=== PATIENT | female | born 1965 | race Caucasian/White ===

== ENCOUNTER 2017-04-13 00:26 | Inpatient (IN) | payer OTHER ==
[~2017-04-13] VITALS: Ht 167.6 cm; Wt 115.3 kg
[~2017-04-13 00:26] MED LIST: CINNAMON500 MG PO; ENALAPRIL MALEA20 MG PO; FLUOXETINE HCL20 MG PO; FUROSEMIDE40 MG PO; GABAPENTIN600 MG PO; GLIMEPIRIDE1 MG PO; HYDROCHLOROTHIA25 MG PO; KLOR-CON M2020 MEQ PO; LO-DOSE ASPIRIN81 M2 PO; METFORMIN HCL500 M1 PO; PRAVASTATIN SOD20 MG PO; PROBIOTIC1 EAC1 PO; WELLBUTRIN XL150 MG PO
[2017-04-13 00:44] LABS: BASOPHIL COUNT 0.1 K/uL (0-0.1); EOSINOPHIL (%) 1.9 % (0-5); EOSINOPHIL COUNT 0.3 K/uL (0-0.3); HEMATOCRIT 31.4 % (36.0-46.0); IMMATURE GRANULOCYTE (%) 1.1 % (0.0-0.7); IMMATURE GRANULOCYTE COUNT 0.2 K/uL; INSTRUMENT ABS NEUTROPHIL CT 12.9 K/uL; MCH 28.4 PG (29.0-34.0); MCHC 33.8 G/DL (30.0-36.0); MCV 84.2 FL (83-99); MEAN PLAT.VOLUME 8.4 uM^3 (9.5-12.4); MONOCYTE COUNT 1.2 K/uL (0-0.8); NEUTROPHIL (%) 77.7 % (45-76); NEUTROPHIL COUNT 12.9 K/uL (1.8-6.4); PLATELET COUNT 369 K/uL (156-360); RBC DIS.WIDTH-CV 14.2 % (11.8-14.6); RBC DIS.WIDTH-SD 43.6 % (39-53); RED BLOOD COUNT 3.73 M/uL (3.80-5.20); WHITE BLOOD COUNT 16.6 K/uL (4.1-10.2)
[2017-04-13 00:52] LABS: CHLORIDE 89 mEq/L (99-109); POTASSIUM 4.9 mEq/L (3.7-5.4); SODIUM 126 mEq/L (136-147)
[2017-04-13 00:54] LABS: GLUCOSE 167 mg/dL (70-99)
[2017-04-13 00:55] LABS: ANION GAP 10 MEQ/L (2-14)
[2017-04-13 00:58] LABS: GFR ESTIMATE (CALCULATED) 46 mL/min/
[2017-04-13 00:59] LABS: UREA NITROGEN (BUN) 25 mg/dL (9-23)
[2017-04-13] MEDS ORDERED: ALDACTONE25 MG PO (03:01)
[2017-04-13] MEDS ORDERED: NORVASC5 MG PO (03:02)
[2017-04-13] MEDS ORDERED: LOSARTAN POTASS50 MG PO (03:03)
[2017-04-13] MEDS ORDERED: VENLAFAXINE HCL75 M3 PO (03:04)
[2017-04-13] MEDS ORDERED: TERBINAFINE HC250 MG PO (03:04)
[2017-04-13 03:51] VITALS: BP 148/74
[2017-04-13 03:57] LABS: ADD MIUA? YES; BILIRUBIN NEGATIVE; BLOOD NEGATIVE; COLOR YELLOW ((YELLOW)); GLUCOSE (STRIP) 50; KETONES NEGATIVE; LEUKOCYTES SMALL; NITRITE POSITIVE; PROTEIN (STRIP) NEGATIVE; SPECIFIC GRAVITY 1.013 (1.000-1.030); UROBILINOGEN 0.2 MG/DL (0.2-1.0)
[2017-04-13 04:09] LABS: BACTERIA 1+ /HPF; EPITHELIAL CELLS RARE /HPF; MUCUS TRACE /LPF; RED BLOOD CELLS 0-5 /HPF (0-5); UCUL ADDED? NO
[2017-04-13 05:10] LABS: UR CREATININE CONCENTRATION 70.3 MG/DL
[2017-04-13 06:38] LABS: POINT-OF-CARE METER ID UU14162508
[2017-04-13 07:19] VITALS: BP 106/60
[2017-04-13 08:15] VITALS: BP 142/65
[2017-04-13] MEDS ORDERED: EFFEXOR XR150 MG PO (08:31)
[2017-04-13 11:04] VITALS: BP 132/62
[2017-04-13 12:24] LABS: METH RESISTANT S AUREUS PCR POSITIVE (NEGATIVE)
[2017-04-13 12:31] LABS: PROBE CHECK PASS
[2017-04-13 13:33] LABS: BASOPHIL COUNT 0.1 K/uL (0-0.1); EOSINOPHIL (%) 2.6 % (0-5); EOSINOPHIL COUNT 0.4 K/uL (0-0.3); HEMATOCRIT 29.5 % (36.0-46.0); IMMATURE GRANULOCYTE (%) 0.5 % (0.0-0.7); IMMATURE GRANULOCYTE COUNT 0.1 K/uL; INSTRUMENT ABS NEUTROPHIL CT 11.7 K/uL; LYMPHOCYTE COUNT 1.5 K/uL (1.0-2.8); MCHC 33.2 G/DL (30.0-36.0); MCV 84.3 FL (83-99); MEAN PLAT.VOLUME 8.9 uM^3 (9.5-12.4); MONOCYTE (%) 7.3 % (3-12); MONOCYTE COUNT 1.1 K/uL (0-0.8); NEUTROPHIL COUNT 11.7 K/uL (1.8-6.4); PLATELET COUNT 357 K/uL (156-360); RBC DIS.WIDTH-CV 14.1 % (11.8-14.6); RBC DIS.WIDTH-SD 43.8 % (39-53); WHITE BLOOD COUNT 14.8 K/uL (4.1-10.2)
[2017-04-13 15:10] VITALS: BP 138/58; BP 172/78
[2017-04-13 17:12] LABS: CHLORIDE 95 mEq/L (99-109); POTASSIUM 4.7 mEq/L (3.7-5.4); SODIUM 128 mEq/L (136-147)
[2017-04-13 17:14] LABS: GLUCOSE 125 mg/dL (70-99)
[2017-04-13 17:15] LABS: ANION GAP 10 MEQ/L (2-14)
[2017-04-13 17:18] LABS: GFR ESTIMATE (CALCULATED) 50 mL/min/
[2017-04-13 17:19] LABS: UREA NITROGEN (BUN) 18 mg/dL (9-23)
[2017-04-13 19:43] VITALS: BP 132/62
[2017-04-13 21:20] LABS: POINT-OF-CARE METER ID UU14162508
[2017-04-14 00:29] VITALS: BP 142/64
[2017-04-14 06:33] LABS: BASOPHIL COUNT 0.1 K/uL (0-0.1); EOSINOPHIL (%) 3.5 % (0-5); EOSINOPHIL COUNT 0.5 K/uL (0-0.3); HEMATOCRIT 28.7 % (36.0-46.0); IMMATURE GRANULOCYTE (%) 0.8 % (0.0-0.7); IMMATURE GRANULOCYTE COUNT 0.1 K/uL; INSTRUMENT ABS NEUTROPHIL CT 10.3 K/uL; LYMPHOCYTE COUNT 1.1 K/uL (1.0-2.8); MCH 28.2 PG (29.0-34.0); MCHC 33.1 G/DL (30.0-36.0); MCV 85.2 FL (83-99); MEAN PLAT.VOLUME 8.5 uM^3 (9.5-12.4); MONOCYTE (%) 6.4 % (3-12); MONOCYTE COUNT 0.8 K/uL (0-0.8); NEUTROPHIL (%) 79.9 % (45-76); NEUTROPHIL COUNT 10.3 K/uL (1.8-6.4); PLATELET COUNT 346 K/uL (156-360); RBC DIS.WIDTH-CV 14.1 % (11.8-14.6); RBC DIS.WIDTH-SD 43.9 % (39-53); RED BLOOD COUNT 3.37 M/uL (3.80-5.20); WHITE BLOOD COUNT 12.9 K/uL (4.1-10.2)
[2017-04-14 07:00] VITALS: BP 129/59
[2017-04-14 07:39] LABS: ANION GAP 8 MEQ/L (2-14); CHLORIDE 93 MEQ/L (99-109); GFR ESTIMATE (CALCULATED) 55 mL/min/; GLUCOSE 122 mg/dL (70-99); POTASSIUM 4.9 MEQ/L (3.7-5.4); SAMPLE HEMOLYSIS CHECK 0; SAMPLE ICTERIC CHECK 0; SAMPLE LIPEMIA CHECK 0; SODIUM 129 MEQ/L (136-147); UREA NITROGEN (BUN) 19 mg/dL (9-23)
[2017-04-14 11:48] VITALS: BP 149/68
[2017-04-14 12:26] LABS: POINT-OF-CARE METER ID UU14162508
[2017-04-14] MEDS ORDERED: GLIMEPIRIDE1 MG PO (13:53)
[2017-04-14] MEDS ORDERED: EFFEXOR XR75 MG PO (13:54)
[2017-04-14] MEDS ORDERED: CYANOCOBALAM1000 MCG PO (13:55)
[2017-04-14 16:00] VITALS: BP 148/74
[2017-04-14 17:27] LABS: POINT-OF-CARE METER ID UU14162508
[2017-04-14 23:44] VITALS: BP 123/60
[2017-04-15 06:46] LABS: MCH 28.5 PG (29.0-34.0); MCHC 33.6 G/DL (30.0-36.0); MCV 84.8 FL (83-99); PLATELET COUNT 375 K/uL (156-360); RBC DIS.WIDTH-CV 14.1 % (11.8-14.6); RBC DIS.WIDTH-SD 43.7 % (39-53); WHITE BLOOD COUNT 11.3 K/uL (4.1-10.2)
[2017-04-15 07:55] LABS: ANION GAP 7 MEQ/L (2-14); CHLORIDE 94 MEQ/L (99-109); GFR ESTIMATE (CALCULATED) 55 mL/min/; GLUCOSE 101 mg/dL (70-99); POTASSIUM 4.9 MEQ/L (3.7-5.4); SAMPLE HEMOLYSIS CHECK 0; SAMPLE ICTERIC CHECK 0; SAMPLE LIPEMIA CHECK 0; SODIUM 129 MEQ/L (136-147); UREA NITROGEN (BUN) 18 mg/dL (9-23)
[2017-04-15 08:00] VITALS: BP 120/62
[2017-04-15 12:00] VITALS: BP 139/65
[2017-04-15 12:15] LABS: POINT-OF-CARE METER ID UU14162508
[2017-04-15 21:32] LABS: POINT-OF-CARE METER ID UU14162508
[2017-04-16 00:25] VITALS: BP 152/72
[2017-04-16 06:52] LABS: BASOPHIL COUNT 0.1 K/uL (0-0.1); EOSINOPHIL (%) 5.2 % (0-5); EOSINOPHIL COUNT 0.7 K/uL (0-0.3); HEMATOCRIT 30.2 % (36.0-46.0); IMMATURE GRANULOCYTE COUNT 0.1 K/uL; LYMPHOCYTE COUNT 1.9 K/uL (1.0-2.8); MCH 28.7 PG (29.0-34.0); MCHC 33.4 G/DL (30.0-36.0); MCV 85.8 FL (83-99); MEAN PLAT.VOLUME 8.7 uM^3 (9.5-12.4); MONOCYTE (%) 6.1 % (3-12); MONOCYTE COUNT 0.8 K/uL (0-0.8); NEUTROPHIL (%) 72.3 % (45-76); PLATELET COUNT 433 K/uL (156-360); RBC DIS.WIDTH-CV 14.1 % (11.8-14.6); RBC DIS.WIDTH-SD 43.7 % (39-53); RED BLOOD COUNT 3.52 M/uL (3.80-5.20); WHITE BLOOD COUNT 12.5 K/uL (4.1-10.2)
[2017-04-16 07:23] LABS: ANION GAP 9 MEQ/L (2-14); CHLORIDE 94 MEQ/L (99-109); GFR ESTIMATE (CALCULATED) > 59 mL/min/; GLUCOSE 117 mg/dL (70-99); POTASSIUM 4.8 MEQ/L (3.7-5.4); SAMPLE HEMOLYSIS CHECK 0; SAMPLE ICTERIC CHECK 0; SAMPLE LIPEMIA CHECK 0; SODIUM 132 MEQ/L (136-147); UREA NITROGEN (BUN) 18 mg/dL (9-23)
[2017-04-16 07:40] VITALS: BP 128/60
[2017-04-16 16:55] VITALS: BP 160/70
[2017-04-16 21:39] LABS: POINT-OF-CARE METER ID UU14162508
[2017-04-16 23:30] VITALS: BP 134/76
[2017-04-17 04:39] LABS: BASOPHIL COUNT 0.1 K/uL (0-0.1); EOSINOPHIL (%) 4.7 % (0-5); EOSINOPHIL COUNT 0.6 K/uL (0-0.3); HEMATOCRIT 31.7 % (36.0-46.0); IMMATURE GRANULOCYTE (%) 1.3 % (0.0-0.7); IMMATURE GRANULOCYTE COUNT 0.2 K/uL; INSTRUMENT ABS NEUTROPHIL CT 8.9 K/uL; MCH 28.2 PG (29.0-34.0); MCHC 33.1 G/DL (30.0-36.0); MCV 85.2 FL (83-99); MEAN PLAT.VOLUME 8.6 uM^3 (9.5-12.4); MONOCYTE (%) 5.7 % (3-12); MONOCYTE COUNT 0.7 K/uL (0-0.8); NEUTROPHIL (%) 71.8 % (45-76); NEUTROPHIL COUNT 8.9 K/uL (1.8-6.4); PLATELET COUNT 481 K/uL (156-360); RBC DIS.WIDTH-CV 13.7 % (11.8-14.6); RBC DIS.WIDTH-SD 42.8 % (39-53); RED BLOOD COUNT 3.72 M/uL (3.80-5.20); WHITE BLOOD COUNT 12.4 K/uL (4.1-10.2)
[2017-04-17 04:50] LABS: CHLORIDE 96 mEq/L (99-109); POTASSIUM 4.9 mEq/L (3.7-5.4); SODIUM 133 mEq/L (136-147)
[2017-04-17 04:51] LABS: GLUCOSE 137 mg/dL (70-99)
[2017-04-17 04:53] LABS: ANION GAP 9 MEQ/L (2-14)
[2017-04-17 04:55] LABS: GFR ESTIMATE (CALCULATED) 55 mL/min/
[2017-04-17 04:56] LABS: UREA NITROGEN (BUN) 20 mg/dL (9-23)
[2017-04-17 06:40] LABS: POINT-OF-CARE METER ID UU14162508
[2017-04-17 08:15] VITALS: BP 158/70
[2017-04-17 12:16] LABS: POINT-OF-CARE METER ID UU14162508
[2017-04-17 17:00] VITALS: BP 162/71
[2017-04-17 17:18] LABS: POINT-OF-CARE METER ID UU14162508
[2017-04-17 19:35] VITALS: BP 165/80
[2017-04-18 00:10] VITALS: BP 122/59
[2017-04-18 03:17] VITALS: BP 135/77
[2017-04-18 06:27] LABS: POINT-OF-CARE METER ID UU14162508
[2017-04-18 07:19] LABS: BASOPHIL COUNT 0.1 K/uL (0-0.1); EOSINOPHIL (%) 3.3 % (0-5); EOSINOPHIL COUNT 0.4 K/uL (0-0.3); HEMATOCRIT 28.9 % (36.0-46.0); IMMATURE GRANULOCYTE (%) 1.1 % (0.0-0.7); IMMATURE GRANULOCYTE COUNT 0.1 K/uL; INSTRUMENT ABS NEUTROPHIL CT 9.2 K/uL; LYMPHOCYTE COUNT 1.5 K/uL (1.0-2.8); MCHC 33.6 G/DL (30.0-36.0); MCV 86.5 FL (83-99); MEAN PLAT.VOLUME 8.7 uM^3 (9.5-12.4); MONOCYTE (%) 6.3 % (3-12); MONOCYTE COUNT 0.8 K/uL (0-0.8); NEUTROPHIL (%) 76.4 % (45-76); NEUTROPHIL COUNT 9.2 K/uL (1.8-6.4); PLATELET COUNT 434 K/uL (156-360); RBC DIS.WIDTH-SD 43.8 % (39-53); RED BLOOD COUNT 3.34 M/uL (3.80-5.20)
[2017-04-18 07:38] VITALS: BP 134/64
[2017-04-18 07:50] LABS: ANION GAP 9 MEQ/L (2-14); CHLORIDE 97 MEQ/L (99-109); GFR ESTIMATE (CALCULATED) > 59 mL/min/; GLUCOSE 131 mg/dL (70-99); POTASSIUM 4.6 MEQ/L (3.7-5.4); SAMPLE HEMOLYSIS CHECK 0; SAMPLE ICTERIC CHECK 0; SAMPLE LIPEMIA CHECK 0; SODIUM 133 MEQ/L (136-147); UREA NITROGEN (BUN) 17 mg/dL (9-23)
[2017-04-18] MEDS ORDERED: PEN-VEE K,VEET500 MG PO ×2 (13:04→13:23)
[2017-04-18] MEDS ORDERED: BACTRIM,SEPT1 TABLET PO (13:04)
[2017-04-18] MEDS ORDERED: HYDROCODON-ACE1 EAC7 PO (13:29)
[2017-04-18] MEDS ORDERED: TYLENOL EXTRA500 MG PO (13:29)
== END 2017-04-18 14:55 | disposition home or self-care (01) | DRG 617 ==
LOC: EME 00:26 → 2EAST 02:20 → EDOF 02:20 → 2EAST 03:41
PROVIDERS: Internal Medicine; Internal Medicine Nephrology; Physician Assistant Medical; Student in an Organized Health Care Education/Training Program
PROC: 0Y6U0Z1 Detachment at Left 3rd Toe, High, Open Approach (ICD-10-PCS; principal; 2017-04-17)
DX: E11.628 Type 2 diabetes mellitus with other skin complications (principal); E11.52 Type 2 diabetes mellitus with diabetic peripheral angiopathy with gangrene; Z68.41 Body mass index [BMI] 40.0-44.9, adult; M86.8X7 Other osteomyelitis, ankle and foot; E11.22 Type 2 diabetes mellitus with diabetic chronic kidney disease; L03.116 Cellulitis of left lower limb; E87.1 Hypo-osmolality and hyponatremia; M86.9 Osteomyelitis, unspecified; D64.9 Anemia, unspecified; E78.5 Hyperlipidemia, unspecified; I10 Essential (primary) hypertension; E66.01 Morbid (severe) obesity due to excess calories; E11.69 Type 2 diabetes mellitus with other specified complication; N18.3 Chronic kidney disease, stage 3 (moderate); Z86.14 Personal history of Methicillin resistant Staphylococcus aureus infection; Z79.4 Long term (current) use of insulin
CPT/HCPCS: 73630; 73720; 76770; 80048; 80048 91; 80069; 80202; 81003; 82436; 82570; 82575; 82948; 83605; 83880; 83930; 83935; 84133; 84300; 85025; 85025 91; 85027; 87040; 87070; 87075; 87077; 87147; 87186; 87205; 87641; 88305; 88311; 94660; 99281; 99285; J0690; J1650; J1815; J2250; J2270; J2405; J3010; J3370; J7030; J7050; S0020

== ENCOUNTER 2017-06-07 13:31 | Emergency (ER) | payer OTHER ==
[~2017-06-07] VITALS: Ht 167.6 cm; Wt 118.0 kg
[~2017-06-07 13:31] MED LIST changes: +ALDACTONE25 MG PO; +BACTRIM,SEPT1 TABLET PO; +CYANOCOBALAM1000 MCG PO; +EFFEXOR XR150 MG PO; +EFFEXOR XR75 MG PO; +HYDROCODON-ACE1 EAC7 PO; +LOSARTAN POTASS50 MG PO; +NORVASC5 MG PO; +PEN-VEE K,VEET500 MG PO; +TERBINAFINE HC250 MG PO; +TYLENOL EXTRA500 MG PO; +VENLAFAXINE HCL75 M3 PO
[2017-06-07 14:47] LABS: ADD MIUA? NO; BILIRUBIN NEGATIVE; BLOOD NEGATIVE; COLOR STRAW ((YELLOW)); GLUCOSE (STRIP) NEGATIVE; KETONES NEGATIVE; LEUKOCYTES NEGATIVE; NITRITE NEGATIVE; PROTEIN (STRIP) NEGATIVE; SPECIFIC GRAVITY 1.013 (1.000-1.030); UCUL ADDED? NO; UROBILINOGEN 0.2 MG/DL (0.2-1.0)
[2017-06-07 15:49] VITALS: BP 165/73
== END 2017-06-07 15:51 | disposition home or self-care (01) ==
LOC: EME 13:31
PROVIDERS: Physician Assistant Medical
DX: M79.89 Other specified soft tissue disorders (principal); Z89.422 Acquired absence of other left toe(s); Z98.890 Other specified postprocedural states; I10 Essential (primary) hypertension; E78.5 Hyperlipidemia, unspecified; E11.9 Type 2 diabetes mellitus without complications; Z79.84 Long term (current) use of oral hypoglycemic drugs; Z90.710 Acquired absence of both cervix and uterus; Z95.0 Presence of cardiac pacemaker; Z79.82 Long term (current) use of aspirin
CPT/HCPCS: 73630; 81003; 99281; 99284